=== PATIENT | male | born 1950 | race Caucasian/White ===

== ENCOUNTER 2025-11-05 22:01 | Inpatient (IN) | payer MEDICARE, OTHER ==
[~2025-11-05] VITALS: Ht 162.6 cm; Wt 79.5 kg
--- NOTE | 2025-11-05 23:32 | Physician Documentation ---
History of Present Illness General Chief Complaint: See Chief Complaint Stated Complaint: GROIN PAIN/ABDOMEN PAIN Time Seen by MD: 23:03 Mode of Arrival: EMS History of Present Illness Initial Comments This is a pleasant 75-year-old gentleman with no significant past medical history, however he does not see doctors, presents as a transfer from [facility] for evaluation of rapidly progressing cellulitis of his groin. Symptoms started four days ago with a small area of redness and pain. He states that it was very itchy. He has scratched it a lot. Over the last 24 hours he had developed significant swelling, redness, pain, tenderness to palpation and decided to present to the outside facility. At the outside facility he has a received the workup. And was noted to have leukocytosis 15.1, hemoglobin of 17.7, only 72% neutrophils. His metabolic panel was unremarkable. CT of the abdomen and pelvis was obtained showing bilateral fat containing inguinal hernias with a abnormal appearance of the left scrotal contents. There is significant subcutaneous edema lower abdominal pelvic and scrotal wall without localized fluid collection. The patient received vancomycin, clindamycin, Zosyn. He was transferred for higher level of care for potential surgical consultation and urology consultation although right now there was no evidence of Toy's gangrene. Medication Reconciliation Allergies: Coded Allergies: prochlorperazine (Verified Allergy, Mild, 11/05/25) Review of Systems ROS 10 point review of systems was performed and unless noted above in HPI is negative for acute process/complaint. Physical Exam Physical Exam Vital Signs: Temperature: 98.4, Source: Oral, Heart Rate: 72, Respiratory Rate: 16, BP: 145/76, Pulse Oximetry: 95, Weight: 79.500 Physical Exam GENERAL: Awake, alert, oriented, GCS 15, no apparent distress, non-toxic appearing, answers questions, follows commands appropriately. Examined in bed 7. HEENT: Atraumatic, normocephalic, pupils equal, extraocular muscles intact, sclerae anicteric, mucus membranes moist, oropharynx is clear, no stridor. NECK: supple, full active range of motion, trachea midline, no thyromegaly, no lymphadenopathy, no JVD. CARDIOVASCULAR: regular rate/rhythm, no murmurs/gallops/rubs, Pulses are 2+ in all extremities and symmetric. Capillary refill less than 2 seconds. PULMONARY: Nonlabored, good air movement ,no respiratory distress, speaking in full sentences, clear to auscultation bilaterally, no wheezing, no ronchi, no rales, no accessory muscle use. GASTROINTESTINAL: Soft, non-tender, non-distended, normal active bowel sounds, no organomegaly, no pulsatile masses, no CVA tenderness. NEUROLOGIC: Lucid with normal mental status. Normal facial symmetry. Moves all extremities symmetrically and with purpose. No truncal ataxia. Speech is fluid without evidence of dysarthria or aphasia, no focal deficits appreciated. MUSCULOSKELETAL: There is full range of motion of all extremities. There is no joint pain or joint swelling or joint erythema. There is no muscle pain or tenderness or swelling. EXTREMITIES: warm, well-perfused, no cyanosis, no clubbing, no edema, no acute deformities. Skin: warm, dry, no rashes or lesions, no jaundice, no petechiae orpurpura. No ecchymosis. PSYCHIATRIC: Normal affect, normal insight, normal concentration. Focused exam: [There is significant edema, erythema of the groin with induration in the right side greater than left, tender to palpation of the left scrotum, no violaceous changes, no crepitus, there is erythema that is spreading into the proximal medial thigh of his right groin which is new according to the patient's since he went to the outside facility.] Progress Results/Orders Results/Orders Vital Signs 11/05/25 11/05/25 11/05/25 22:10 22:17 23:10 Temp 98.4 Pulse 68 72 Resp 16 16 16 B/P (MAP) 172/91 145/76 (99) Pulse Ox 98 95 Medical Decision Making Additional information obtaine: old records Findings Facility Status: ED Holds, E process The plan was discussed with the patient, who demonstrates clear understanding of the plan and is in agreement with the plan unless otherwise noted in the chart. All questions have been answered, all concerns were addressed unless otherwise documented. I was available throughout their ED stay for frequent reassessment and questions. Differential Diagnoses (considered and possible or likely): [Cellulitis, abscess, Toy's gangrene, orchitis, epididymo-orchitis, necrotizing fasciitis outside of Toy's gangrene] ??Differential Diagnoses (considered and unlikely, not requiring evaluation currently): [See above] MDM Data Please see HPI for the following: Independent Historians and external Records Review. Historian: [Patient] Independent Historians: ?[Record review] Medication Management: [Reviewed medication list] Social History and determinants: [Reviewed] Please see the body of the note for the following: Any independent interpretations of ECG, imaging studies. All vitals signs/haemodynamics, ordered tests were independently reviewed and in terpreted by myself. Nursing triage complaint and vitals reviewed, additional nursing notes were reviewed as available and I agree unless otherwise noted or documented in contradiction in the chart Vital Signs: Independently reviewed Labs: Independently interpreted Imaging: Independently interpreted Old Medical Records: Independently reviewed, see HPI for relevant summary and information Pulse Oximetry: [98%] interpreted as [normal on room air] by me [Dining Room Attendant: [Regular Rate, Regular rhythm, no ectopy, NSR] reviewed and interpreted by me] Additionally notably showing: [Hemodynamically stable] Tests considered but not ordered include: [Repeat imaging has been considerably does not appear to be necessary at this time] Social Determinants of Health Impact: Patient was evaluated in [facility], [facility] [place] to healthcare due to below par ratio of patient to medical providers. [] Comorbid Conditions Impacting Present Evaluation and Care/Treatment: [Denies any comorbidities] Management Discussions with other Healthcare Providers: [Hospitalist regarding admission] Treatment and Disposition Medication Management (Given or considered): [Already received antibiotics]. See EMR for details Consideration for Hospitalization/Escalation/Deescalation of Care: Admission fo for inpatie management of his groin cellulitis ?ED Course:?[No clinical deterioration] ?Shared decision making:?[] Code status:?FULL Please see the full Electronic Medical Record for full details of nursing documentation, medications list, other records of complete past medical history and conditions, vital signs, laboratory studies, and any radiologic study interpretations by radiologists. Portions of this note were completed using [employer] dictation software and as a result there may exist minor errors in spelling. I have reviewed elements of past family and social history and agree as included in note. Differential Diagnosis See body of mean note for differential diagnosis Departure Disposition: ADMITTED INPATIENT Admitted to Inpatient Unit: to hospitalist Impression: Primary Impression: Cellulitis of groin Condition: Improved Referrals: NO PRIMARY CARE PROVIDER (PCP) Signature Scribe Signature: No scribe Attestation: The note accurately reflects work and decisions made by me.Tom Rendon DO 11/05/25 23:38 TOM RENDON DO Nov 05, 2025 23:32
--- NOTE | 2025-11-05 23:44 | ELECTROCARDIOGRAPH REPORT ---
[facility] Test Date: 2025-11-05 Test Time: 23:40:43 Pat Name: MONICA ARANGO Department: [facility]- Patient ID: [facility]-[id number] Room: [place] [address] Gender: M Brim Stretcher: : 1950 Requested By: RALPH RENDON Order Number: [id number] Reading MD: Dr. ROBBIE Vides Measurements Intervals [place] Rate: 69 P: 26 MD: 193 QRS: -42 QRSD: 94 T: 50 QT: 399 QTc: 428 Interpretive Statements Sinus rhythm Left axis deviation Low voltage, precordial leads Probable anteroseptal infarct, old Electronically Signed On 11-07-2025 13:08:[address] ROBBIE Vides Please click the below link to view image of tracing.
[2025-11-05] MEDS ORDERED: magnesium hydroxide 30ml (MOM) UD suspension PO PRN (23:55)
[2025-11-05] MEDS ORDERED: ondansetron/PF 4mg/2ml inj IV PRN (23:55)
[2025-11-05] MEDS ORDERED: magnesium Cl slow-release 64mg tablet PO PRN (23:55)
[2025-11-05] MEDS ORDERED: magnesium sulf-water 4G/100mL 100 ML IV PRN (23:55)
[2025-11-05] MEDS ORDERED: mag hydrox/Alum hydrox/simeth 30ml oral suspension PO PRN (23:55)
[2025-11-05] MEDS ORDERED: potassium Cl 20 mEq SR tablet PO PRN ×2 (23:55)
[2025-11-05] MEDS ORDERED: magnesium sulf-water 2g/50mL 50 ML IV PRN (23:55)
[2025-11-05] MEDS ORDERED: potassium Cl 40MEQ/1/2NS 520ml 520 ML IV PRN (23:55)
[2025-11-06] VITALS (9 sets, daily range): BP systolic 112–162; BP diastolic 54–90; PULSE 68–81; RESP 16–24; TEMP 98.1–98.3; O2SAT 96–98
[2025-11-06] MEDS ORDERED: NO HOME MEDS (00:04)
[2025-11-06 00:12] LABS: LEUKOCYTE ESTERASE ,URINE NEGATIVE (Neg); NITRITES, URINE NEGATIVE (Neg); OCCULT BLOOD,URINE NEGATIVE (Neg)
[2025-11-06 00:14] LABS: UA COLLECTION TYPE CLN CATCH MIDSTREAM
[2025-11-06 00:16] LABS: MEAN PLATELET VOLUME 6.9 FL (7.4-10.4); RED CELL DISTRIBUTION WIDTH 13.4 % (11.5-14.5)
[2025-11-06 00:28] LABS: APTT 30 SECONDS (22-32); INR 1.1 INR
[2025-11-06 00:32] LABS: CREATININE 0.93 MG/DL (0.60-1.10); TOTAL CARBON DIOXIDE 27.7 MMOL/L (24-32); eCRCL 58 ML/MIN; eGFR 79 ML/MIN
[2025-11-06] MEDS: normal saline 1000ml 1,000 ML IV SCH (01:22)
--- NOTE | 2025-11-06 02:30 | HISTORY AND PHYSICAL-Residence ---
History & Physical Providers to CC Resident Creating Document: SRUTHI CURIEL RES ~ History of Present Illness Reason for Admit\Complaint: Right groin cellulitis History of Present Illness A 75-year-old male with no known chronic medical conditions presented to the ED due to progressively worsening pain, swelling and redness in his right groin. Symptoms began approximately four days ago and have progressed, he noticed that the erythema and swelling had expanded across the suprapubic region. He claims the pain 5-10/10 and is localized primarily to the right inguinal area. He denies any fever, chills, nausea, vomiting or recent illness. He reports no dysuria, though he does have chronic urinary frequency. He denies any trauma initially but later mentioned a fall and scratching in the right groin earlier in the week that may have preceded the swelling. He does not have a primary care provider and takes no home medications.He reports a history of tobacco use since adolescence ( pack/day) and remote methamphetamine use in the , with occasional more recent use. 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 All negative except for pertinent positive HPI. Exam Vitals: Vital Signs Date Time Temp Pulse Resp B/P (MAP) Pulse Ox O2 Delivery O2 Flow Rate FiO2 11/06/25 01:15 98.1 79 24 159/86 (110) 96 Room Air General: Awake , alert, and oriented x4, resting comfortably in the bed, in no acute distress HEENT: Atraumatic, normocephalic, EOMI, anicteric sclera ; pink conjunctiva Neck: Trachea midline. Supple, full range of motion, no JVD Cardiac: Regular rhythm, regular rate with no murmurs all over the precordium. Respiratory: Equal breath sounds bilaterally, no tachypnea, no wheezing ,rub or rales, Chest wall is symmetric and without deformity. Gastrointestinal: Abdomen symmetric, non-distended, soft, non-tender, normal bowel sounds x4 quadrant, normoactive, no hepatosplenomegaly : In the right groin there is a warm tender swollen cordlike mass in the right inguinal area. The erythema does seem to cross the midline over the suprapubic region but does not extend into the left groin. There is some redness involving the scrotum although the scrotum does not appear edematous, swollen and is not tender to palpation. The remainder the genitalia is unremarkable there are no other obvious open wounds or sores. No crepitus MSK: Non-tender, No deformity, Neurological: Mental status exam: alert and consciousness, orientation, memory, speech - Cranial nerve test: Cranial nerves 2-12 intact - Motor system: Nutrition, Tone 3+, Power 5/5, no involuntary movements - Sensory system: Intact - Reflex testing: Biceps, triceps and knee reflexes 2+ - Cerebellar: Normal Skin: Warm and dry Diagnostic Data Last Recorded Lab Results: 11/05/25 2357 11/05/25 2357 Diagnostic Data: Laboratory Tests Test 11/05/25 23:57 Prothrombin Time 10.9 SECONDS (9.0-12.0) INR International Normalized Ratio 1.1 INR Activated Partial Thromboplast Time 30 SECONDS (22-32) Coagulation Comments Advance Care Planning Advanced Care plannin - 30 Minutes Additional Plan 1. 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) Possible early sepsis secondary to cellulitis of the groin Severe right groin cellulitis with rapid progression extending into suprapubic region and proximal thigh CT shows edema but lack of gas does NOT exclude necrotizing fasciitis Neutrophilia present Early Fourniers / necrotizing fasciitis Leukocytosis with neutrophilia; rapidly spreading soft-tissue infection Plan: General surgery consulted, awaiting recommendations Continue broad-spectrum IV antibiotics: vancomycin and piperacillintazobactam Cultures ordered Lactic acid within normal limits Mood resuscitation with NS at 100 cc/hour Worsening symptoms are seen immediate operative exploration maybe needed 2. Abnormal Left Scrotal Contents on CT (Possible Hematoma vs Hydrocele vs Testicular Injury) Normal ultrasound ordered Urology evaluation based on scrotal ultrasound 3. Bilateral Fat-Containing Inguinal Hernias (Non-incarcerated) CT confirms fat-containing hernias without bowel involvement No signs of hernia incarceration or strangulation clinically Plan: No emergent repair needed Can reassess once acute infection is controlled 4. Tobacco Use & Remote IV Methamphetamine Use Provided cessation counseling on admission And replacement therapy ordered Social work and substance abuse navigator consulted Echocardiogram ordered please follow up due to methamphetamine usage Code Status: I spent a total of 17 minutes on reviewing various resuscitative measures with the patient at the time of admission. The patient has decided on a full code status. DVT Prophylaxis: Heparin SQ Nutrition: Regular diet PT: Ordered Prognosis: Guarded Disposition: Awaiting surgical evaluation Sruthi Curiel MD Internal Medicine Resident, PGY-2 Patient evaluated using HIPPA compliant AV device Agree with plan as discussed with the resident Hosea Arndt MD Date of Service: Nov 06, 2025 Billing Provider: HOSEA ARNDT MD, GAURAV, RES Nov 06, 2025 02:30 HOSEA ARNDT MD Nov 06, 2025 03:16
[2025-11-06] MEDS: clindamycin 300mg/D5W 50mL 50 ML IV SCH (03:08)
[2025-11-06] MEDS: vancomycin/NS 1 GM ADD-VANTAGE 250 ML IV SCH (03:24)
[2025-11-06] MEDS ORDERED: piperacillin/tazobactam inj. 3.375 GM in NS 50ml IV ONE (04:00)
[2025-11-06] MEDS: piperacillin/tazo 3.375gm/50ml 50 ML IV SCH (05:10)
[2025-11-06 06:43] LABS: MEAN PLATELET VOLUME 7.2 FL (7.4-10.4); RED CELL DISTRIBUTION WIDTH 13.5 % (11.5-14.5)
[2025-11-06 07:03] LABS: CHOL/HDL RATIO 3.6 (0.00-4.99); CREATININE 0.95 MG/DL (0.60-1.10); LDL CHOLESTEROL 77 MG/DL (50-100); TOTAL CARBON DIOXIDE 26.0 MMOL/L (24-32); eCRCL 57 ML/MIN; eGFR 77 ML/MIN
[2025-11-06] MEDS ORDERED: piperacillin/tazo 3.375gm/50ml 50 ML IV SCH (08:00)
[2025-11-06] MEDS: K and/or MAG REPLACEMENT MC SCH (08:00)
[2025-11-06] MEDS: nicotine 21mg patch - 24 hr TD SCH (08:26)
[2025-11-06] MEDS: docusate sod 100mg capsule PO SCH (08:27)
[2025-11-06] MEDS: heparin, porcine 5000 units/ml vial SQ SCH (08:27)
--- NOTE | 2025-11-06 09:28 | RADIOLOGY REPORT ---
CLINICAL INFORMATION: Scrotal cellulitis and possible abscess. TECHNIQUE: Grayscale sonographic imaging of the testicles and scrotal contents was performed , assisted by color doppler technique. Duplex doppler ultrasound of both testicles was performed. COMPARISON: None available at the time of dictation. FINDINGS: The right testicle measures 4.0 x 3.2 x 3.0 cm, within normal limits. Unremarkable echogenicity of the right testicle. Arterial and venous blood flow demonstrated. 0.4 cm right epididymal head cyst. Small right hydrocele. No varicocele. The left testicle measures 2.5 x 3.3 x 4.0 cm, within normal limits. There is tubular ectasia of the rete testis. Otherwise unremarkable echogenicity of the left testicle. Arterial and venous blood flow demonstrated. Moderate to large complex left hydrocele with thick septations. 0.2 cm epididymal head cyst. No varicocele. IMPRESSION: 1. Moderate to large Complex, septated left hydrocele. 2. Small right hydrocele. 3. Bilateral epididymal head cysts. 4. No sonographic evidence of testicular torsion.
--- NOTE | 2025-11-06 13:03 | RADIOLOGY REPORT ---
History: right groin infection Comparison Study: None Technique: Multidetector spiral CT of the pelvis was performed from iliac crests to pubic symphysis. 100 cc of intravenous contrast was administered during this examination. Axial, coronal and sagittal multiplanar reformats were performed by the technologist on a separate workstation. Radiation Dose : CT Dose: CTDI volume is 12.7 mGy. Dose-length product is 514 mGy*cm Findings: Visualized bowel: Small bowel and colon are normal in caliber and distribution. The appendix is not visualized; however, no secondary findings of acute appendicitis identified. Ascites: Absent Lymphadenopathy: No pelvic or mesenteric lymphadenopathy. Pelvis Wall and Mesentery: Unremarkable. Vasculature: The visualized abdominal aorta is normal in size and caliber. Abdominal and pelvic vessels demonstrate normal enhancement. Pelvic Organs: Unremarkable Musculoskeletal: No aggressive focal bony lesions, acute fractures or dislocation. Bladder: Unremarkable Other: Soft tissue swelling in the subcutaneous tissues of the right groin and inguinal region without focal fluid collection or gas in the soft tissues. Incidental note made of surgical clips along the spermatic cords IMPRESSION: 1. Soft tissue infection right groin without identifiable gas or fluid collection. Recommend follow-up END IMPRESSION:
[2025-11-06] MEDS: VANCOMYCIN LEVEL IV ONE (14:47)
--- NOTE | 2025-11-06 14:55 | PROGRESS NOTE- Residence ---
Progress Note - Resident Providers to CC Resident Creating Document: CHEPE GONZALEZ RES ~ Antibiotic Timeout Antibiotic Ordered?: Yes Subjective Seen and examined the patient at the bedside, pain and erythema improving Objective Vital Signs Date Time Temp Pulse Resp B/P (MAP) Pulse Ox O2 Delivery O2 Flow Rate FiO2 11/06/25 13:07 98.1 71 16 140/78 (98) 98 Room Air Result Diagram: 11/06/25 0603 11/06/25 0603 Awake , alert, and oriented x4, resting comfortably in the bed, in no acute distress HEENT: Atraumatic, normocephalic, EOMI, anicteric sclera ; pink conjunctiva Neck: Trachea midline. Supple, full range of motion, no JVD Cardiac: Regular rhythm, regular rate with no murmurs all over the precordium. Respiratory: Equal breath sounds bilaterally, no tachypnea, no wheezing ,rub or rales, Chest wall is symmetric and without deformity. Gastrointestinal: Abdomen symmetric, non-distended, soft, non-tender, normal bowel sounds x4 quadrant, normoactive, no hepatosplenomegaly : In the right inguinal region, there is a warm, tender,rock like swelling. The erythema improved comapred to marked areas . There is mild redness of the scrotum; however, the scrotum is neither edematous nor tender on palpation. no visible ulcers, open lesions, or crepitus Neurological: Mental status exam: alert and consciousness, orientation, memory, speech - Cranial nerve test: Cranial nerves 2-12 intact - Motor system: Nutrition, Tone 3+, Power 5/5, no involuntary movements - Sensory system: Intact - Reflex testing: Biceps, triceps and knee reflexes 2+ - Cerebellar: Normal Skin: Warm and dry Coagulation Studies Laboratory Tests Test 11/05/25 23:57 Prothrombin Time 10.9 SECONDS (9.0-12.0) INR International Normalized Ratio 1.1 INR Activated Partial Thromboplast Time 30 SECONDS (22-32) Coagulation Comments Advance Care Planning Advanced Care plannin - 30 Minutes Assessment Assessment Right groin swelling 2/2 cellulitis Severe right groin cellulitis with rapid progression extending into suprapubic region and proximal thigh CT shows Soft tissue infection right groin without identifiable gas or fluid collection Neutrophilia present Early Fourniers / necrotizing fasciitis Leukocytosis with neutrophilia; rapidly spreading soft-tissue infection Plan: is on board, He recommonded continuation of antibiotics and deffered Incision and drainage Continue broad-spectrum IV antibiotics: vancomycin and Hold piperacillintazobactam Cultures negative Lactic acid within normal limits Continue NS at 100 cc/hour Worsening symptoms are seen immediate operative exploration maybe needed 2. Abnormal Left Scrotal Contents on CT (Possible Hematoma vs Hydrocele vs Testicular Injury) Testicular ultrasound-shows Moderate to large Complex, septated left hydrocele. Small right hydrocele.Bilateral epididymal head cysts. 3. Bilateral Fat-Containing Inguinal Hernias (Non-incarcerated) CT confirms fat-containing hernias without bowel involvement No signs of hernia incarceration or strangulation clinically No emergent repair needed Can reassess once acute infection is controlled 4. Tobacco Use & Remote IV Methamphetamine Use Provided cessation counseling on admission And replacement therapy ordered Social work and substance abuse navigator consulted Follow up with the echocardiogram Code Status: Full DVT Prophylaxis: Heparin SQ Nutrition: Regular diet PT: Ordered Prognosis: Guarded Disposition: is on board Chepe Gonzalez PGY1-Internal Medicine Resident Date of Service: Nov 06, 2025 Billing Provider: ÁNGEL KAN MD, SATISH, RES Nov 06, 2025 14:55
--- NOTE | 2025-11-06 15:02 | CONSULTATION REPORT ---
History of Present Illness Providers to CC CC: MARYLIN KWON MD ~ Reason for Admit\Admit Dx: Right groin cellulitis History of Present Illness Patient admitted last night with diagnosis of right groin cellulitis. Patient reports a history of worsening erythematous changes and swelling in the right groin over the last five days. Tender to the touch. Presented to the emergency room last night. The area of concern was not imaged and he only underwent a scrotal ultrasound that did not reveal any testicular torsion. It did reveal only septated right hydrocele and a small left hydrocele. I was called to evaluate the patient due to leukocytosis and concern for possible necrotizing soft tissue infection. Patient agrees with the above history. He is comfortable and reports no significant pain. He describes the right groin as uncomfortable. He states the redness and swelling has increased over the last couple of days He does report a remote history of previous skin infection, at a different location. He denies any fevers or chills. Allergies: Coded Allergies: prochlorperazine (Verified Allergy, Mild, 11/05/25) Home Medications Home Medications Active Reported No Home Medications (Home Med List) Each Past Medical History Medical History Comment None reported Past Social History Social History Comment Tobacco use daily No significant alcohol intake Denies active illicit drug use but does have a history of long ago use Physical Exam Last Vital Signs Recorded: RN Vital Signs have been reviewed: Yes, Temperature: 98.1, Source: Oral, Heart Rate: 71, Respiratory Rate: 16, BP: 140/78, Pulse Oximetry: 98, Weight: 79.500 General Appearance: alert, WD/WN, no apparent distress EENT: PERRL/EOMI; No: scleral icterus (R), scleral icterus (L) Neck: normal inspection, supple Respiratory: lungs clear Cardiovascular: normal peripheral pulses, regular rate, rhythm Gastrointestinal: normal palpation, non-tender Genitalia Significant inguinal crease edema, induration and erythematous changes Tender to palpation without crepitus or fluctuance No drainage or open wounds Rectal: deferred Back: normal inspection, no CVA tenderness Extremities: normal range of motion, non-tender Neurologic: oriented x4 Psychiatric: normal mood/affect; No: anxiety Skin: normal color Lymphatic: no adenopathy Review of Systems ROS ROS Comments: Reviewed and negative with the exception of those found in the history of present illness Results Diagram Lab Result Diagram: 11/06/2503 11/06/25602 Assessment/Plan Problems/Diagnosis: (1) Cellulitis of groin Assessment & Plan: The LRINEC is only one, making necrotizing soft tissue infection highly unlikely The CT scan does not show a drainable collection making surgical incision and drainage not necessary at this point Continue broad-spectrum antibiotics If groin becomes more fluctuant, certainly incision and drainage could prove to expedite resolution of infectious process, however, at this time not clearly indicated. I will continue to follow MARYLIN KWON MD Nov 06, 2025 15:02
[2025-11-07 06:00] VITALS: BP 160/84; PULSE 72; RESP 14; TEMP 98.8; O2SAT 99
[2025-11-07 07:38] LABS: MEAN PLATELET VOLUME 7.5 FL (7.4-10.4); RED CELL DISTRIBUTION WIDTH 13.4 % (11.5-14.5)
[2025-11-07 08:00] VITALS: BP_SYST 129; BP_SYST 136; BP_SYST 143; BP_DIAS 71; BP_DIAS 74; BP_DIAS 76; PULSE 72; PULSE 84; PULSE 87; RESP 14; O2SAT 99
--- NOTE | 2025-11-07 08:26 | PROGRESS NOTE ---
Progress Note Dictate Providers to CC CC: MARYLIN KWON MD ~ Progress Note: Subsequent surgical care on a 75-year-old gentleman who was transferred here from an outside facility with concerns of necrotizing soft tissue infection Clinically this does not appear to be the case Significant right inguinal cellulitis with no abscess forming as of now Significant induration persists, however, no fluctuance For now, I would continue another 24 hours of IV antibiotics If continues to improve (resolving erythema and induration), I would have him discharge home on an extended course of oral antibiotics tomorrow If no improvement or developing fluctuance, surgical incision and drainage would then be considered. Antibiotic Ordered?: Yes Objective Vitals Vital Signs Date Time Temp Pulse Resp B/P (MAP) Pulse Ox O2 Delivery O2 Flow Rate FiO2 11/07/25 06:00 98.8 72 14 160/84 (109) 99 Room Air Lab Results: 11/07/25 0647 11/06/25 0603 Coagulation Studies Laboratory Tests Test 11/05/25 23:57 Prothrombin Time 10.9 SECONDS (9.0-12.0) INR International Normalized Ratio 1.1 INR Activated Partial Thromboplast Time 30 SECONDS (22-32) Coagulation Comments Problem\Assessment\Plan Problems/Diagnosis: (1) Cellulitis of groin MARYLIN KWON MD Nov 07, 2025 08:26
[2025-11-07 08:59] LABS: CREATININE 0.89 MG/DL (0.60-1.10); TOTAL CARBON DIOXIDE 26.9 MMOL/L (24-32); eCRCL 61 ML/MIN; eGFR 84 ML/MIN
[2025-11-07 10:00] VITALS: BP 129/76; PULSE 72; RESP 18; TEMP 98.6; O2SAT 96
[2025-11-07] MEDS: PERFLUTREN PROTEIN-A MICROSPHR (Optison) 0.22 MG/ML 3ML VIAL IV ONE (10:00)
[2025-11-07 12:17] VITALS: BP_SYST 129; PULSE 76
--- NOTE | 2025-11-07 13:57 | CARDIOLOGY REPORT ---
APPROVED REPORT EXAM: Comprehensive 2D, Doppler, and color-flow Echocardiogram. Patient Location: 345B Heart Rate: 69 bpm Rhythm: NSR Indications ABNORMAL EKG METHAMPHETAMINE USE REHABILITATION NURSE: None PRIOR ECHOCARDIOGRAM: None. 2D Dimensions RVDd 3.2 cm IVSd 1.1 (0.7-1.1cm) LVDd 4.9 cm PWd 1.1 (0.7-1.1cm) IVSs 1.2 (0.8-1.2cm) LVDs 3.2 (2.5-4.0cm) PWs 1.1 (0.8-1.2cm) LVOT Diameter 2.00 (1.8-2.4cm) LVEF(%) 63.8 (>50%) FS (%) 34.8 % SV 71.7 ml CO 5.2 L/min M-Mode Dimensions Left Atrium(MM) 4.08 (2.5-4.0cm) Aortic Root 3.71 (2.2-3.7cm) Aortic Cusp Exc 1.85 (1.5-2.0cm) Aortic Valve AoV Peak Felix. 181.8 cm/s AoV VTI 34.4 cm AO Peak GR. 13.2 mmHg AO Mean GR. 7 mmHg LVOT VTI 22.15 cm LVOT Peak Felix. 102.4 cm/s TANISHA (VTI) 2.01 cm2 AV DI 0.64 % Mitral Valve MV E Velocity 93.5 cm/s MV Peak Gr. 4 mmHg MV A Velocity 109.9 cm/s MV PHT 60 ms E/A Ratio 0.9 MVA (PHT) 3.67 cm2 MV VMax 94.7 cm/s LEFT VENTRICLE Normal LV size and function. Mild concentric hypertrophy. Overall LVEF is 60-65%. RIGHT VENTRICLE RV is normal size and function. ATRIA Left atrium is mildly dilated. AORTIC VALVE Trileaflet AV appears mildly sclerotic without stenosis. No insufficiency by color and spectral flow Doppler. MITRAL VALVE The mitral valve is normal in structure.Trace regurgitation. TRICUSPID VALVE TV appears structurally normal with no regurgitation by color and spectral flow Doppler. PULMONIC VALVE Pulmonic valve is not well visualized. GREAT VESSELS The aortic root is normal in size. Ascending aorta is mildly dilated. The IVC is normal in size and collapses >50% with inspiration. PERICARDIUM No significant pericardial effusions Other Information Study Quality: Fair Conclusion Overall LVEF is 60-65%. Normal LV size and function. Mild concentric hypertrophy. RV is normal size and function. Trileaflet AV appears mildly sclerotic without stenosis. No insufficiency by color and spectral flow Doppler. The mitral valve is normal in structure.Trace regurgitation. TV appears structurally normal with no regurgitation by color and spectral flow Doppler. No significant pericardial effusions
[2025-11-07] MEDS ORDERED: VANCOMYCIN LEVEL IV ONE (14:30)
[2025-11-07] MEDS ORDERED: LINE600T14 PO (14:41)
--- NOTE | 2025-11-07 20:43 | DISCHARGE SUMMARY-Residence ---
Discharge Summary Providers to CC Resident Creating Document: MATHEW GONZALEZ, RES ~ Discharge Summary Admission Diagnosis: Right groin cellulitis Hospital Course DATE OF ADMISSION: 11/05/2025 DATE OF DISCHARGE: 11/07/2025 Discharge Diagnosis\Comment: Right groin swelling 2/2 cellulites Operations\Procedures: None Consultants: Dr. Simms Complications: None Condition on DC: Stable New Medications: Linezolid (Linezolid) 600 Mg Tablet 1 TAB PO Q12H for 10 Days, #20 TAB 0 Refills Continued Medications: Home Med List (No Home Medications) Each Discharge Summary: History of Present Illness A 75-year-old male with no known chronic medical conditions presented to the ED due to progressively worsening pain, swelling and redness in his right groin. Symptoms began approximately four days ago and have progressed, he noticed that the erythema and swelling had expanded across the suprapubic region. He claims the pain 5-10/10 and is localized primarily to the right inguinal area. He denies any fever, chills, nausea, vomiting or recent illness. He reports no dysuria, though he does have chronic urinary frequency. He denies any trauma initially but later mentioned a fall and scratching in the right groin earlier in the week that may have preceded the swelling. 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 Hospital course This is a 75 years old male with no medical condition came to ED with right groin cellulitis, patient was initially managed with IV vancomycin and Zosyn, the following day his erythema, swelling slowly subsiding and we continued IV vancomycin and patient is showing clinical improvement in terms of swelling. Dr. Simms who is on board recommended for 1 more day of antibiotic at hospital but patient is eager to go home On the day of the discharge patient shows improvement in his symptoms, and he is hemodynamically stable and discharged with antibiotics Vital Signs Date Time Temp Pulse Resp B/P (MAP) Pulse Ox O2 Delivery O2 Flow Rate FiO2 11/07/25 12:17 76 11/07/25 10:00 98.6 18 129/76 (93) 96 Room Air Laboratory Tests Test 11/05/25 23:40 11/05/25 23:57 11/06/25 06:03 11/07/25 06:47 Urine Specimen Description Cln catch midstream Urine Color Yellow Urine Clarity Clear Urine pH 6.0 Urine Specific [place] 1.010 Urine Protein Negative mg/dl Urine Glucose (UA) Negative mg/dl Urine Ketones Negative mg/dl Urine Occult Blood Negative Urine Nitrite Negative Urine Bilirubin Negative Urine Urobilinogen 0.2 E.U/dL Urine Leukocyte Esterase Negative Urine Culture Indicated Not ind Volume Urine Centrifuged 10 ml Urine Comment White Blood Count 15.3 X10'3 13.7 X10'3 9.7 X10'3 Red Blood Count 5.09 X10'6 4.67 X10'6 4.85 X10'6 Hemoglobin 16.1 g/dl 14.7 g/dl 15.3 g/dl Hematocrit 46.4 % 42.1 % 44.3 % Mean Corpuscular Volume 91.3 FL 90.2 FL 91.4 FL Mean Corpuscular Hemoglobin 31.7 PG 31.4 PG 31.5 PG Mean Corpuscular Hemoglobin Concent 34.7 g/dL 34.8 g/dL 34.5 g/dL Red Cell Distribution Width 13.4 % 13.5 % 13.4 % Platelet Count 304 X10'3 282 X10'3 297 X10'3 Mean Platelet Volume 6.9 FL 7.2 FL 7.5 FL Neutrophils (%) (Auto) 75.1 % 70.5 % 60.7 % Lymphocytes (%) (Auto) 8.6 % 15.2 % 21.1 % Monocytes (%) (Auto) 12.9 % 9.7 % 10.5 % Eosinophils (%) (Auto) 2.8 % 4.0 % 6.6 % Basophils (%) (Auto) 0.6 % 0.6 % 1.1 % Neutrophils # (Auto) 11.5 X10'3 9.7 X10'3 5.9 X10'3 Lymphocytes # (Auto) 1.3 X10'3 2.1 X10'3 2.0 X10'3 Monocytes # (Auto) 2.0 X10'3 1.3 X10'3 1.0 X10'3 Eosinophils # (Auto) 0.4 X10'3 0.5 X10'3 0.6 X10'3 Basophils # (Auto) 0.1 X10'3 0.1 X10'3 0.1 X10'3 CBC Comment Erythrocyte Sedimentation Rate 18 MM/HR Prothrombin Time 10.9 SECONDS INR International Normalized Ratio 1.1 INR Activated Partial Thromboplast Time 30 SECONDS Coagulation Comments Sodium Level 140 MMOL/L 140 MMOL/L 142 MMOL/L Potassium Level 4.0 MMOL/L 3.9 MMOL/L 4.2 MMOL/L Chloride Level 106 MMOL/L 106 MMOL/L 107 MMOL/L Carbon Dioxide Level 27.7 MMOL/L 26.0 MMOL/L 26.9 MMOL/L Anion Gap 6 8 8 Blood Urea Nitrogen 12 MG/DL 12 MG/DL 11 MG/DL Creatinine 0.93 MG/DL 0.95 MG/DL 0.89 MG/DL Estimated GFR/1.73 m2 79 ML/MIN 77 ML/MIN 84 ML/MIN BUN/Creatinine Ratio 12.9 12.6 12.4 Glucose Level 107 MG/DL 90 MG/DL 83 MG/DL Hemoglobin A1c 5.3 % Lactic Acid Level 0.9 MMOL/L Calcium Level 8.7 MG/DL 8.1 MG/DL 8.5 MG/DL Magnesium Level 2.1 MG/DL 1.8 MG/DL 2.1 MG/DL Total Bilirubin 0.7 MG/DL 0.8 MG/DL 0.7 MG/DL Aspartate Amino Transf (AST/SGOT) 13 U/L 13 U/L 12 U/L Alanine Aminotransferase (ALT/SGPT) 7 U/L 10 U/L 10 U/L Alkaline Phosphatase 96 IU/L 80 IU/L 77 IU/L Troponin I High Sensitivity 11 ng/L C-Reactive Protein 4.28 MG/DL Total Protein 7.6 G/DL 6.8 G/DL 7.1 G/DL Albumin 3.4 G/DL 3.0 G/DL 3.1 G/DL Globulin 4.2 G/DL 3.8 G/DL 4.0 G/DL Albumin/Globulin Ratio 0.8 0.8 0.8 Procalcitonin < 0.05 NG/ML Chemistry Comments Triglycerides Level 67 MG/DL Cholesterol Level 115 MG/DL LDL Cholesterol 77 MG/DL HDL Cholesterol 32 MG/DL Cholesterol/HDL Ratio 3.6 Physical examination Awake , alert, and oriented x4, resting comfortably in the bed, in no acute distress HEENT: Atraumatic, normocephalic, EOMI, anicteric sclera ; pink conjunctiva Neck: Trachea midline. Supple, full range of motion, no JVD Cardiac: Regular rhythm, regular rate with no murmurs all over the precordium. Respiratory: Equal breath sounds bilaterally, no tachypnea, no wheezing ,rub or rales, Chest wall is symmetric and without deformity. Gastrointestinal: Abdomen symmetric, non-distended, soft, non-tender, normal bowel sounds x4 quadrant, normoactive, no hepatosplenomegaly : In the right inguinal region, there is a warm, tender,rock like swelling. The erythema improved comapred to marked areas . There is mild redness of the scrotum; however, the scrotum is neither edematous nor tender on palpation. no visible ulcers, open lesions, or crepitus Neurological: Mental status exam: alert and consciousness, orientation, memory, speech - Cranial nerve test: Cranial nerves 2-12 intact - Motor system: Nutrition, Tone 3+, Power 5/5, no involuntary movements - Sensory system: Intact - Reflex testing: Biceps, triceps and knee reflexes 2+ - Cerebellar: Normal Skin: Warm and dry Imaging at hospital Testicular ultrasound-. Moderate to large Complex, septated left hydrocele. Small right hydrocele. Bilateral epididymal head cysts. No sonographic evidence of testicular torsion. Pelvic CT-Soft tissue infection right groin without identifiable gas or fluid collection. Echocardiogram-shows Overall LVEF is 60-65%. Normal LV size and function. Mild concentric hypertrophy. RV is normal size and function. Trileaflet AV appears mildly sclerotic without stenosis. No insufficiency by color and spectral flow Doppler. The mitral valve is normal in structure.Trace regurgitation. TV appears structurally normal with no regurgitation by color and spectral flow Doppler. No significant pericardial effusions Discharge instructions Follow up with PCP in 2 weeks. Follow up with . Continue to take linezolid 600mg BID for another 10 days without fail. Call 911 or return to ER in case of fever, unresolving, pain, redness or any discharge. *Problems/Diagnosis: (1) Cellulitis of groin Status: Acute Total Time Spent on D/C: Up to 30 Minutes Counseling Services Smoking & Tobacco Cessation: 3-10 Minutes Date of Service: Nov 07, 2025 Billing Provider: ÁNGEL KAN MD Common Visit Codes: 02779-YYC/OBS DISCH DAY >30min MATHEW GONZALEZ, RES Nov 07, 2025 20:42 ÁNGEL KAN MD Nov 08, 2025 06:52
[2025-11-09 05:13] LABS: HBSAG SCREEN Negative (Negative); HEP B CORE AB, IGM Negative (Negative); HEP B CORE AB, TOT Positive (Negative)
== END 2025-11-07 17:26 | disposition home or self-care (01) | DRG 603 ==
LOC: ER 22:02 → ED HOLD 23:58 → SUR 3N 11-06 01:10
PROVIDERS: ADMIT Internal Medicine; ATTEND Internal Medicine
PROC: BW211ZZ Computerized Tomography (CT Scan) of Abdomen and Pelvis using Low Osmolar Contrast (ICD-10-PCS; principal; 2025-11-06)
DX: L03.314 Cellulitis of groin (principal); F15.90 Other stimulant use, unspecified, uncomplicated; R35.0 Frequency of micturition; F17.210 Nicotine dependence, cigarettes, uncomplicated; Z90.49 Acquired absence of other specified parts of digestive tract; K40.20 Bilateral inguinal hernia, without obstruction or gangrene, not specified as recurrent; Z71.51 Drug abuse counseling and surveillance of drug abuser; N43.3 Hydrocele, unspecified
CPT/HCPCS: 36415; 72193; 76870; 80053; 80061; 81003; 83036; 83605; 83735; 84145; 84484; 85025; 85610; 85651; 85730; 86140; 86704; 86705; 87040; 87081; 87340; 93005; 93306; 93976; 99285; G0378; J1644; J2270; J2543; J3373; J3490; J7030